=== PATIENT | male | born 1990 | race Two or more races ===

== ENCOUNTER 2025-04-01 12:49 | Emergency (ER) | payer MEDICAID, OTHER ==
[~2025-04-01] VITALS: Ht 175.3 cm; Wt 76.4 kg
--- NOTE | 2025-04-01 13:18 | ED.PDOC ---
General HPI Comments This is a 34 year old male presenting to the ED with chief complaint of abdominal and flank pain. Patient reports that he has been experiencing suprapubic abdominal pain with associated bilateral flank pain, nausea, and chills since yesterday along with hematuria and blood in stool about 2 hours ago since returning from [place]. Patient relays that he was previously diagnosed in the past with kidney stones. Patient denies any dysuria, fever, dizziness, headache, melena, or vomiting. Chief Complaint: Flank Pain Time Seen by MD: 13:15 Reviewed notes: Nurses Notes, Medications, Allergies Allergies: Coded Allergies: NO KNOWN ALLERGIES (Unverified , 04/01/25) Home Meds Active Scripts Tramadol Hcl (Tramadol Hcl) 50 Mg Tab, 50 MG PO Q8HP PRN for 6 Days, #18 TAB Prov:RUBIN BALTAZAR MD 04/01/25 Ciprofloxacin Hcl (Cipro) 500 Mg Tab, 1 TAB PO BID, #14 TAB Prov:RUBIN BALTAZAR MD 04/01/25 Information Source: Patient Mode of Arrival: Ambulatory Severity: Moderate Timing: Hours Duration: Since onset Prehospital treatment: None Onset: Spontaneous Symptoms: Hematuria History of: Kidney stone Location: Suprapubic, (R) Flank, (L)Flank associated signs and symptoms: Abdominal Pain, Nausea, Flank Pain, Hematuria Past Medical History PAST MEDICAL HISTORY: Kidney Stones Surgical History: Denies all surgeries Family History Family History: Reviewed,noncontributory to illness Social History Smoker: Non-Smoker Alcohol: Denies ETOH Use Drugs: Denies Drug Use Lives In: Home Constitutional: denies: chills, diaphoresis, fatigue, fever, malaise, sweats, weakness, others EENTM: denies: blurred vision, double vision, ear bleeding, ear discharge, ear drainage, ear pain, ear ringing, eye pain, eye redness, hearing loss, mouth pain, mouth swelling, nasal discharge, nose bleeding, nose congestion, nose pain, photophobia, tearing, throat pain, throat swelling, voice changes, others Respiratory: denies: cough, hemoptysis, orthopnea, SOB at rest, shortness of breath, SOB with excertion, stridor, wheezing, others Cardiovascular: denies: chest pain, dizzy spells, diaphoresis, Dyspnea on exertion, edema, irregular heart beat, left arm pain, lightheadedness, palpitations, PND, syncope, others Gastrointestinal: reports: abdominal pain, blood streaked bowels, nausea; denies: abdomen distended, constipated, diarrhea, dysphagia, difficulty swallowing, hematemesis, melena, poor appetite, poor fluid intake, rectal bleeding, rectal pain, vomiting, others Genitourinary: reports: flank pain, hematuria; denies: burning, dysuria, frequency, incontinence, penile discharge, penile sore, pain, testicle pain, testicle swelling, urgency, others Neurological: denies: dizziness, fainting, headache, left sided numbness, left sided weakness, numbness, paresthesia, pre-existing deficit, right sided numbness, right sided weakness, seizure, speech problems, tingling, tremors, weakness, others Musculoskeletal: denies: back pain, gout, joint pain, joint swelling, muscle pain, muscle stiffness, neck pain, others Integumetry: denies: bruises, change in color, change in hair/nails, dryness, laceration, lesions, lumps, rash, wounds, others Allergic/Immunocompromised: denies: Difficulty Healing, Frequent Infections, Hives, Itching, others Hematologic/Lymphatic: denies: anemia, blood clots, easy bleeding, easy bruising, swollen glands, others Endocrine: denies: excessive hunger, excessive sweating, excessive thirst, excessive urination, flushing, intolerance to cold, intolerance to heat, unexplained weight gain, unexplained weight loss, others Psychiatric: denies: anxiety, bipolar disorder, depression, hopeless, panic disorder, schizophrenia, sleepless, suicidal, others All Other Systems: Reviewed and Negative Physical Exam General Appearance: Mild Distress HEENT: Normal ENT Inspection, Pharynx Normal, TMs Normal Neck: Full Range of Motion, Non-Tender, Normal, Normal Inspection Respiratory: Chest Non-Tender, Lungs Clear, No Accessory Muscle Use, No Respiratory Distress, Normal Breath Sounds Cardiovascular: No Edema, No JVD, No Murmur, No Gallop, Normal Peripheral Pulses, Regular Rate/Rhythm Breast Exam: Deferred Gastrointestinal: No Organomegaly, Non Tender, No Pulsatile Mass, Normal Bowel Sounds, Soft Genitalia: Deferred Pelvic: Deferred Rectal: Deferred Extremities: No calf tenderness, Normal capillary refill, Normal inspection, Normal range of motion, Non-tender, No pedal edema Musculoskeletal : Location: Right Extremity Location: Back Apperance: Limited ROM, Tenderness: Mild Neurologic: Alert, operation agent II-XII nml as Tested, No Motor Deficits, Normal Affect, Normal Mood, No Sensory Deficits Cerebellar Function: Normal Reflexes: Normal Skin: Dry, Normal Color, Warm Lymphatic: No Adenopathy Was a procedure done? Was a procedure done?: No Differential Diagnosis Kidney stone (Female): N/A Kidney stone (Male): Urinary obstruction, Urolithiasis, Renal infarction X-Ray, Labs, Meds, VS Vital Signs Date Time Temp Pulse Resp B/P (MAP) Pulse Ox O2 Delivery O2 Flow Rate FiO2 04/01/25 15:24 97.8 77 16 122/72 (89) 97 97.8 04/01/25 12:51 97.9 81 18 141/92 96 97.9 Lab Test 04/01/25 13:16 Range/Units White Blood Count 6.0 4.4-10.8 10^3/uL Red Blood Count 4.96 4.5-5.90 10^6/uL Hemoglobin 15.8 13.5-17.5 g/dL Hematocrit 45.4 41.0-53.0 % Mean Corpuscular Volume 91.4 80.0-100.0 fL Mean Corpuscular Hemoglobin 31.9 28.0-32.0 pg Mean Corpuscular Hemoglobin Concent 34.9 32.0-36.0 g/dL Red Cell Distribution Width 12.4 11.8-14.3 % Platelet Count 217 140-450 10^3/uL Mean Platelet Volume 8.5 6.9-10.8 fL Neutrophils (%) (Auto) 69.9 37.0-80.0 % Lymphocytes (%) (Auto) 19.5 10.0-50.0 % Monocytes (%) (Auto) 8.2 0.0-12.0 % Eosinophils (%) (Auto) 1.8 0.0-7.0 % Basophils (%) (Auto) 0.6 0.0-2.0 % Neutrophils # (Auto) 4.2 1.6-8.6 10 ^3/uL Lymphocytes # (Auto) 1.2 0.4-5.4 10 ^3/uL Monocytes # (Auto) 0.5 0-1.3 10 ^3/uL Eosinophils # (Auto) 0.1 0-0.8 10 ^3/uL Basophils # (Auto) 0 0-0.2 10 ^3/uL Nucleated Red Blood Cells 0.2 % Sodium Level 141 136-145 mmol/L Potassium Level 3.8 3.5-5.1 mmol/L Chloride Level 105 98-107 mmol/L Carbon Dioxide Level 28 20-31 mmol/L Anion Gap 8 5-15 Blood Urea Nitrogen 14 9-23 mg/dL Creatinine 0.96 0.700-1.30 mg/dL Glomerular Filtration Rate Calc 107 >90 mL/min BUN/Creatinine Ratio 14.6 10.0-20.0 Serum Glucose 95 74-106 mg/dL Calcium Level 9.3 8.7-10.4 mg/dL Current Medications Medications (Trade) Dose Ordered Sig/Irivng Route Start Time Stop Time Status Last Admin Ondansetron HCl (Zofran) 4 mg ONCE ONCE IV 04/01/25 13:15 04/01/25 13:16 DC 04/01/25 15:29 Sodium Chloride 1,000 ml @ 1,000 mls/hr Q1H ONCE IVB 04/01/25 13:15 04/01/25 14:14 DC 04/01/25 13:44 Ketorolac Tromethamine (Toradol Injection) 30 mg ONCE ONCE IV 04/01/25 13:15 04/01/25 13:16 DC 04/01/25 15:29 CT Abd/Pel indicates: No evidence of bowel obstruction, acute appendicitis, or other acute process in the abdomen or pelvis. IV Hep-Lock was established and the patient was given a 1 L bolus of normal saline The patient was given Zofran 4 mg IV push The patient was given Toradol 30 mg IV push The CBC and chemistry panel are within normal limits The patient is being discharged with a diagnosis of UTI and dysuria Images Reviewed?: Images reviewed and evaluated by me Time of 1ST Reevaluation: 16:05 Reevaluation 1ST: Improved Patient Education/Counseling: Diagnosis, Treatment, Prognosis, Need For Follow Up Family Education/Counseling: No Family Present SEPSIS Sepsis Screen Date sepsis recognized/suspect: Apr 01, 2025 Time Sepsis recognized/suspect: 1254 Recent Procedure: No On Antibiotic Therapy: No Respiratory Rate >20: No Heart Rate >90: No Temp<36 C (96.8 F) or >38.3 C: No SBP <90 or MAP <65 mmHG: No New Acute Mental Status Change: No Is the patient on CPAP, BIPAP,: No Physician Orders Urinalysis (04/01/25 13:05) Ct Ab Pel Wo Con-No Oral Or Iv (04/01/25 13:05) Heplock Iv (04/01/25 13:05) Vital Signs Date Time Temp Pulse Resp B/P (MAP) Pulse Ox O2 Delivery O2 Flow Rate FiO2 04/01/25 15:24 97.8 77 16 122/72 (89) 97 97.8 04/01/25 12:51 97.9 81 18 141/92 96 97.9 Laboratory Tests Test 04/01/25 13:16 White Blood Count 6.0 10^3/uL (4.4-10.8) Medications Medications Dose Ordered Sig/Irving Route Start Time Stop Time Status Last Admin Dose Admin Ketorolac Tromethamine 30 mg ONCE ONCE IV 04/01/25 13:15 04/01/25 13:16 DC 04/01/25 15:29 Ondansetron HCl 4 mg ONCE ONCE IV 04/01/25 13:15 04/01/25 13:16 DC 04/01/25 15:29 Sodium Chloride 1,000 ml @ 1,000 mls/hr Q1H ONCE IVB 04/01/25 13:15 04/01/25 14:14 DC 04/01/25 13:44 Departure 1 Departure Time of Disposition: 16:05 Impression: Primary Impression: Dysuria Additional Impression: Flank pain Qualified Codes: R10.A0 - Flank pain, unspecified side Disposition: HOME / SELF CARE / HOMELESS Condition: Fair e-Prescriptions Tramadol Hcl (Tramadol Hcl) 50 Mg Tab 50 MG PO Q8HP PRN for 6 Days, #18 TAB Prov: RUBIN BALTAZAR MD 04/01/25 Ciprofloxacin Hcl (Cipro) 500 Mg Tab 1 TAB PO BID, #14 TAB Prov: RUBIN BALTAZAR MD 04/01/25 Discharged With: Self Critical Care Note Critical Care Time?: No Stability Stability form required: No Heart Score Heart Score: Heart Score Response (Comments) Value History N/A 0 EKG N/A 0 Age N/A 0 Risk Factors N/A 0 Troponin N/A 0 Total 0 I personally scribed for RUBIN BALTAZAR MD ([email or web address]) on 04/01/25 at 13:17. Electronically submitted by Niko Syed ([email or web address]). I personally scribed for RUBIN BALTAZAR MD ([email or web address]) on 04/01/25 at 14:06. Electronically submitted by Niko Syed ([email or web address]). RUBIN BALTAZAR MD Apr 01, 2025 13:17
[2025-04-01] MEDS: SODIUM CHLORIDE 0.9% 1,000 ML IVB ONE (13:44)
[2025-04-01 13:49] LABS: Hematocrit 45.4 % (41.0-53.0); Hemoglobin 15.8 g/dL (13.5-17.5); Mean Corpuscular Hemoglobin 31.9 pg (28.0-32.0); Mean Corpuscular Volume 91.4 fL (80.0-100.0); Nucleated Red Blood Cells % 0.2 %
--- NOTE | 2025-04-01 13:49 | DVH ---
EXAM: CT CT AB PEL WO CON-NO ORAL OR IV HISTORY: lower abd pain COMPARISON: None TECHNIQUE: Helical CT images of the abdomen and pelvis were performed without IV contrast. Sagittal a nd coronal reformatted images were obtained. This CT exam was performed using one or more of the foll owing dose reduction techniques: Automated exposure control, adjustment of the mA and/or kv according to patient size, or the use of iterative reconstruction techniques. Radiation Dose: Abdomen/Pelvis: CTDIvol 8.48 mGy, DLP 176.5 mGy*cm. FINDINGS: CT abdomen: The lung bases are clear. The heart is not enlarged. The noncontrast liver, spleen, gallb ladder, pancreas, kidneys, and adrenal glands are unremarkable. No abdominal aortic aneurysm. CT pelvis: No abnormal bowel dilatation, free air, or free fluid. The appendix and urinary bladder ar e unremarkable. IMPRESSION: No evidence of bowel obstruction, acute appendicitis, or other acute process in the abdomen or pelvis .
[2025-04-01 13:50] LABS: Chloride 105 mmol/L (98-107); Potassium 3.8 mmol/L (3.5-5.1); Sodium 141 mmol/L (136-145)
[2025-04-01 13:51] LABS: Anion Gap 8 (5-15); Carbon Dioxide 28 mmol/L (20-31)
[2025-04-01 13:52] LABS: Calcium 9.3 mg/dL (8.7-10.4)
[2025-04-01 13:56] LABS: BUN/Creatinine Ratio 14.6 (10.0-20.0); Blood Urea Nitrogen 14 mg/dL (9-23); Glucose 95 mg/dL (74-106)
[2025-04-01 15:24] VITALS: BP 122/72; PULSE 77; RESP 16; TEMP 97.8; O2SAT 97
[2025-04-01] MEDS: ONDANSETRON HCL 4 MG/2 ML VIAL IV ONE (15:29)
[2025-04-01] MEDS: KETOROLAC TROMETH 30 MG/ML 1ML VIAL IV ONE (15:29)
[2025-04-01] MEDS ORDERED: CIPR-173 PO (16:07)
[2025-04-01] MEDS ORDERED: TRAM-626 PO (16:07)
[2025-04-01] MEDS ORDERED: TRAM50TA2 PO (16:10)
[2025-04-01 17:01] LABS: Urine Protein, UAD TRACE (Negative)
== END 2025-04-01 16:36 | disposition home or self-care (01) ==
LOC: ER 12:49
DX: R10.24 Suprapubic pain (principal); R30.0 Dysuria; Z87.442 Personal history of urinary calculi
CPT/HCPCS: 36415; 74176; 80048; 81001; 85025; 96361; 96374; 96375; 99285; J1885; J2405; J7030